=== PATIENT | female | born 1945 ===

== ENCOUNTER 2020-06-09 09:38 | Outpatient (CLI) | payer MEDICARE ==
--- NOTE | 2020-06-09 11:13 | Ultrasound Report ---
ULTRASOUND-GUIDED CORE NEEDLE BIOPSY Left BREAST WITH CLIP PLACEMENT INDICATION: Left breast mass at the 4:00 position. COMPARISON: 05/31/2020, 05/25/2020. FINDINGS: Informed consent was obtained. The mass within the left breast at the 4:00 position, 5 cm from the ni pple, was identified with ultrasound. The overlying skin was cleansed with chloro prep and local anes thesia was obtained with a 1% lidocaine solution. Under ultrasound guidance a 14-gauge spring loaded core biopsy needle was advanced to the lesion. A total of 4 core samples were obtained. A U-shaped bi opsy marker was placed to sam the site of the biopsy. Specimen samples were placed in formalin and s ent to pathology for analysis. Patient tolerated the procedure well and no immediate complications were identified. A post procedure mammogram demonstrates accurate placement of the biopsy marker. IMPRESSION: Technically successful ultrasound guided core biopsy of left breast mass at the 4:00 position with ac curate placement of a U-shaped biopsy marker. An addendum will be added to this report once pathology results are available. Signer Name: Jose Hart MD Signed: 06/09/2020 11:09 AM Workstation Name: [id number]
--- NOTE | 2020-06-09 11:45 | Mammography Report ---
LEFT DIAGNOSTIC MAMMOGRAM INDICATION: Status post left breast biopsy. COMPARISON: 05/31/2020, 05/25/2020, 04/21/2020. FINDINGS: Left breast CC and LM projection mammograms were obtained. These document the accurate loca tion of a U-shaped biopsy marker at the site of previously noted left breast mass at the 4:00 positio n. IMPRESSION: Left breast mammographic images documenting accurate location of U shaped biopsy marker status post u ltrasound guided core biopsy of left breast mass at the 4:00 position. BI-RADS Category 4: Suspicious for Malignancy. Signer Name: Jose Hart MD Signed: 06/09/2020 11:40 AM Workstation Name: [id number]
== END 2020-06-09 09:39 | disposition home or self-care (01) ==
LOC: SPVWC 09:38
PROVIDERS: ATTEND Surgery
DX: N63.23 Unspecified lump in the left breast, lower outer quadrant (principal); R92.8 Other abnormal and inconclusive findings on diagnostic imaging of breast; I10 Essential (primary) hypertension; M19.90 Unspecified osteoarthritis, unspecified site
CPT/HCPCS: 88305; 88341; 88342

== ENCOUNTER 2020-12-22 12:44 | Outpatient (CLI) | payer MEDICARE ==
--- NOTE | 2020-12-22 13:54 | Ultrasound Report ---
LEFT DIGITAL DIAGNOSTIC MAMMOGRAM WITH CAD CONVENTIONAL, 12/22/2020 LEFT LIMITED BREAST ULTRASOUND CLINICAL INFORMATION / INDICATION: Patient presents for six-month follow-up following benign left elvin ast ultrasound-guided biopsy. ABNORMAL MAMMO R92.8 TECHNIQUE: Digital left mammographic imaging was performed. Limited ultrasound was performed. This ex amination was interpreted with the benefit of Computer-Aided Detection (CAD) analysis. COMPARISON: Prior mammograms 06/09/2020 and 04/21/2020 FINDINGS: Breast Density: There are scattered areas of fibroglandular density. MAMMOGRAPHIC FINDINGS: No dominant mass, suspicious calcifications, or architectural distortion in th e left breast. There is a biopsy clip at site of previously described nodular density in the 4:00 pos ition of the left breast, middle depth. The nodular density is less conspicuous compared with the pre biopsy mammogram. ULTRASOUND FINDINGS: Targeted ultrasound evaluation was performed of the area of interest. There is a stable oval circumscribed hypoechoic mass in the left breast 4:00 position located 5 cm from the n ipple measuring up to 8mm. A biopsy clip is seen within the mass. IMPRESSION: 1. Stable biopsy proven benign nodule in the left breast. No suspicious mammographic or sonographic a bnormality identified. Follow up recommendation: Back to schedule. BI-RADS Category 2: Benign. A "normal" or negative report should not discourage follow up or biopsy of a clinically significant f inding. A written summary of these findings will be mailed to the patient. The patient will be entered into a mammography reporting system which will generate a reminder letter for the patient's next appointmen t at the appropriate interval. According to the [employer], yearly mammograms are recommended starting at age 40 and continuing as long as a woman is in good health. Breast MRI is recommended for women with an shay roximately 20-25% or greater lifetime risk of breast cancer, including women with a strong family his tory of breast or ovarian cancer and women who have been treated for Hodgkin's disease. Signer Name: Alejandra Fuentes MD Signed: 12/22/2020 1:50 PM Workstation Name: [id number]
== END 2020-12-22 12:45 | disposition home or self-care (01) ==
LOC: SPVWC 12:44
PROVIDERS: ATTEND Surgery
DX: N63.23 Unspecified lump in the left breast, lower outer quadrant (principal); R92.8 Other abnormal and inconclusive findings on diagnostic imaging of breast

== ENCOUNTER 2021-04-25 13:19 | Outpatient (CLI) | payer MEDICARE ==
--- NOTE | 2021-04-26 08:01 | Mammography Report ---
BILATERAL DIGITAL SCREENING MAMMOGRAM WITH CAD HISTORY: Screening mammogram. History of benign left breast biopsy. TECHNIQUE: Routine digital mammographic imaging performed. This examination was interpreted with chandu lee benefit of Computer-aided Detection analysis. COMPARISON: 04/21/2020, 06/09/2020, 11/18/2016. FINDINGS: Breast Density: scattered fibroglandular appearance of the breast tissue. Digital CC and MLO views demonstrate no mammographic evidence of malignancy. A biopsy marker within the left lateral breast is noted at site of benign biopsy. IMPRESSION: No mammographic evidence of malignancy. If the clinical examination remains stable, recommend bilate ral mammogram in approximately one year. BIRADS 2: Benign Finding(s). FURTHER INFORMATION: According to the [employer], yearly mammograms are recommend ed starting at age 40 and continuing as long as a woman is in good health. Clinical Breast Exams shou ld be part of a periodic health exam-about every 3 years for women in their 20s and 30s and every yea r for women 40 and over. Breast self exam is an option for women starting in their 20s. Any breast ch gianluca noted on a breast self exam should be reported promptly to the patient's healthcare provider. Br east MRI is recommended for women with an approximately 20-25% or greater lifetime risk of breast can cer, including women with a strong family history of breast or ovarian cancer and women who have been treated for Hodgkin's disease. A negative Mammography report should not discourage follow up or biopsy of a clinically significant f inding and/or abnormality. Dense breast tissue may obscure small neoplasms. The patient will be entered into a reminder system with a target due date for the next screening mamm ogram. Signer Name: Jose Hart MD Signed: 04/26/2021 7:57 AM Workstation Name: [id number]
== END 2021-04-25 13:20 | disposition home or self-care (01) ==
LOC: SPVWC 13:19
PROVIDERS: ATTEND Internal Medicine
DX: Z12.31 Encounter for screening mammogram for malignant neoplasm of breast (principal)
CPT/HCPCS: 77067